=== PATIENT | male | born 1960 | race Caucasian/White ===

== ENCOUNTER 2018-02-21 07:45 | Emergency (ER) | payer OTHER, SELFPAY ==
[2018-02-21 07:53] VITALS: BP 165/112; PULSE 114; RESP 13; O2SAT 98
--- NOTE | 2018-02-21 07:58 | PC.NURSE ---
Pt describes his symptoms as he put on his glasses and he thought they were on crooked, he cleaned them but then when he was brushing his teeth the left side of his mouth was unable to purse his lips, and then driving in his left eye started watering so he tried blinking and his left eye wouldn't close. So he came here. Pt denies pain.
--- NOTE | 2018-02-21 08:01 | ED.NEUROSD ---
HPI - Neuro Symptoms/Deficit General Chief Complaint: Neuro Symptoms/Deficit Stated Complaint: LEFT SIDE OF FACE MUSCLES NOT WORKING Time Seen by Provider: 02/21/18 07:50 Source: patient Mode of arrival: ambulatory Limitations: no limitations History of Present Illness HPI Narrative: Is a 57-year-old male comes to the emergency department. Upon awakening he on and droop of the left side of his face. Patient states that he has droop of lower face but also noted that he can't close his left eye completely. Patient states that he was normal last night when he went to bed. He woke this morning he states that he thought his glasses run a little cocci brought them clean and then retested them and his vision was fine but then when he looked in the mirror noted that his face did not look normal. Patient states when he tried to brush his teeth or drink water spilled out the side of his mouth. He is not having any weakness or numbness on his upper lower extremities. He is not having any headaches, no other vision changes, no chest pain, no shortness of breath, no nausea vomiting or GI or urinary symptoms. Patient has a follow-up with his primary care physician next week for his annual physical. Does have a history of hypertension he takes lisinopril but does not take any other medications regularly. He has not had similar symptoms in the past. On Anticoagulants: No Related Data Home Medications Medication Instructions Recorded Confirmed lisinopril 10 mg PO QDAY #0 01/29/11 aspirin 81 mg PO QDAY #0 02/17/11 Previous Rx's Medication Instructions Recorded hydroxyzine pamoate [Vistaril] 25 - 50 mg PO Q4HP PRN #60 cap 12/18/16 ondansetron [Zofran ODT] 8 mg SUBLINGUAL Q6HP PRN #20 odt 12/18/16 oxycodone-acetaminophen [Percocet] 1 - 2 tab PO Q4HP PRN #60 tab 12/18/16 erythromycin 0.5 inch EYE-LEFT Q8H PRN #1 gram 02/21/18 prednisone See Label Instructions .ROUTE 02/21/18 .COMPLEX #45 tab valacyclovir 1,000 mg PO BID #14 tab 02/21/18 Review of Systems Review of Systems ROS Unobtainable: All systems reviewed & are unremarkable except as noted in HPI and below Constitutional Denies headache(s) Eyes Denies blurry vision and Denies change in vision ENT Ears, Nose, Mouth, and Throat: Denies facial pain, Denies headache(s), Denies hoarseness, Denies nasal congestion, Denies neck pain and Reports other (facial droop) Cardiovascular Denies chest pain, Denies irregular heart rhythm, Denies lightheadedness, Denies palpitations, Denies dyspnea, Denies dyspnea on exertion and Denies orthopnea Respiratory Denies cough, Denies dyspnea, Denies dyspnea on exertion and Denies wheezing Gastrointestinal Gastrointestinal: Denies abdominal pain, Denies change in bowel habits, Denies diarrhea, Denies nausea and Denies vomiting Genitourinary Denies hematuria, Denies flank pain, Denies urinary incontinence and Denies urinary urgency Musculoskeletal Denies abnormal gait, Denies neck pain, Denies numbness (of extremities) and Denies tingling Integumentary/Breasts Denies rash Neurologic Denies abnormal gait, Denies headache(s), Reports focal weakness (facial weakness.), Denies numbness (of extremities) and Denies tingling Endocrine Denies palpitations Allergic/Immunologic Denies wheezing [facility] Medical History Hypertension (Acute) Exam Narrative Exam Narrative: GEN: well nourished, well appearing male, alert and oriented x 3, patient appears to be in mild distress. HEENT: Atraumatic, pupils are equal round reactive to light, extraocular movements are intact, nares are clear, TMs are clear with no fluid, there is no conjunctival pallor. Throat is clear without any exudates, erythema, tonsillar enlargement or uvular deviation, patient has facial droop of the left face. He is unable to completely close his left with downward pressure the lid, he is on the right. Patient has droop of the mouth, cheek as well as upper eye. HEART: Regular rate and rhythm without murmur, clicks, rubs. LUNGS:Lungs clear to auscultation, no wheezes, rales, crackles, chest moves symmetrically ABD:bowel sounds normal, soft, non-tender, no guarding, rebound, rigidity, no masses noted, no hepatosplenomegaly MSCL: Non-tender, no muscle atrophy, muscles strength 5/5 upper and lower extremities, full range of motion, normal gait NEURO:CN 2-12 intact, sensation normal, reflexes 2/4 upper and lower extremities Initial Vital Signs Initial Vital Signs: Vital Signs Pulse Rate 114 H 02/21/18 07:53 Respiratory Rate 13 02/21/18 07:53 Blood Pressure 165/112 H 02/21/18 07:53 Pulse Oximetry 98 02/21/18 07:53 Course Vital Signs - 8 hr 02/21/18 07:53 02/21/18 08:26 Pulse Rate 114 H 112 H Respiratory Rate 13 20 Blood Pressure 165/112 H 137/107 H Pulse Oximetry 98 94 MDM - Neuro Symptoms/Deficit MDM Narrative Medical decision making narrative: 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 He has no other neurologic deficits making a stroke very unlikely. I discussed with patient will start him on prednisone as well as Valtrex. Patient given a script further with mycin ointment. We discussed that during the day he can use hydrating drop such as Visine as this will not affect his vision as much as erythromycin ointment. Patient was his annual physical next week. He is supposed to get his labs drawn which I encouraged him to go and get done and follow-up. Discharge Plan Departure Patient Disposition: Home Clinical Impression: Albarran's palsy Discharge Date/Time: 02/21/18 08:27 Interventions: ED Discharge Assessment Last Done: 02/21/18 08:26 Instructions: DI for Albarran's Palsy Activity Restrictions/Additional Instructions: Follow up with your primary care physician in the next week. Call to set up your appointment. Take steroids until gone. Take antivirals until gone. Use erythromycin ointment prior to bed. You may use paper tape to help keep your eye closed or an eye patch while your sleeping. Use Visine or similar hydrating eyedrops from [id number] 4-6 times daily or if your eyes feel dry. Return to the emergency department for sudden severe headaches, new vision changes, new weakness, numbness or loss of sensation in your extremities, inability to lift or move your arms or leg, difficulty with speech or other new or concerning symptoms. Prescriptions: New prednisone 10 mg tablet See Label Instructions .ROUTE .COMPLEX Qty: 45 RF: 0 valacyclovir 1 gram tablet 1,000 mg PO BID Qty: 14 RF: 0 erythromycin 5 mg/gram (0.5 %) ointment 0.5 inch EYE-LEFT Q8H PRN (Reason: dry eye(s)) Qty: 1 RF: 0 No Action lisinopril 10 MG tablet 10 mg PO QDAY Qty: 0 RF: 0 aspirin 81 MG tablet,chewable 81 mg PO QDAY Qty: 0 RF: 0 ondansetron [Zofran ODT] 8 MG tablet,disintegrating 8 mg Sublingual Q6HP PRNQty: 20 RF: 0 oxycodone-acetaminophen [Percocet] 5 MG/325 MG tablet 1 - 2 tab PO Q4HP PRNQty: 60 RF: 0 hydroxyzine pamoate [Vistaril] 25 MG capsule 25 - 50 mg PO Q4HP PRNQty: 60 RF: 0 Referrals: Micheal Zuñiga MD [Primary Care Provider] -
[2018-02-21 08:26] VITALS: BP 137/107; PULSE 112; RESP 20; O2SAT 94
== END 2018-02-21 08:27 | disposition home or self-care (01) ==
PROVIDERS: Emergency Provider Emergency Medicine; PCP Family Medicine
DX: G51.0 Bell's palsy (principal)
CPT/HCPCS: 99282; 99291

== ENCOUNTER → 2018-04-08 09:41 | Outpatient (CLI) | payer OTHER, SELFPAY ==
--- NOTE | 2018-04-08 | DI.MRI.S_ITS ---
PROCEDURE: MR KNEE LT WO CON INDICATIONS: Unspecified internal derangement of left knee TECHNIQUE: Noncontrast sagittal PD fast spin echo and T2 fast spin echo with fat saturation, sagittal 3-D FLASH with fat saturation; coronal T1 spin echo and PD fast spin echo with fat saturation, and axial PD fast spin echo with fat saturation through the knee. COMPARISON: None. FINDINGS: Image quality: Excellent. Menisci: Ill-defined tear the medial meniscus posterior horn and body, with partial extrusion. There is abnormal signal which extends to the free margin of the body as well as the posterior horn, and the superior articular surface. Prominent intrasubstance signal change within the body of the lateral meniscus, which may extend to the free margin raising the possibility of nondisplaced tear, however technically indeterminate. Cruciate ligaments: The anterior and posterior cruciate ligaments appear intact. Numerous multiloculated cyst just to the posterior aspect of the ACL and PCL within the posterior intercondylar notch image 17 series 7. Medial structures: The medial collateral ligament appears intact. The posterior oblique ligament, semimembranosus tendon insertions, oblique popliteal ligament, and meniscocapsular junction appear intact. Visualized portions of the pes anserinus tendons appear normal. No abnormal bursal fluid. Lateral structures: The lateral collateral ligament demonstrates proximal thickening and intrasubstance signal change. The long and short heads of the biceps femoris tendon appear intact. The popliteus tendon appears normal; the popliteofibular ligament appears intact. The posterosuperior and anteroinferior popliteomeniscal fascicles appear intact. The arcuate and fabellofibular ligaments appear intact, on either side of the lateral inferior geniculate artery. Iliotibial band appears normal. Anterior structures: The quadriceps and patellar tendons appear intact. Proximal and distal patellar tendinopathy is seen. There is prepatellar and superficial infrapatellar subcutaneous edema. Irregularity and poor visualization of the lateral patellofemoral ligament raising possibility of age-indeterminate sprain There is fluid within the deep infrapatellar bursa, raising the possibility of bursitis. Bones and cartilage: No focal marrow contusion or discrete low signal fracture line. Within the medial compartment, near full-thickness loss of the femoral and tibial articular cartilage with subchondral marrow signal changes. Within the lateral compartment, there is mild intrasubstance signal change of the tibial cartilage without definite focal defect. Within the patellofemoral compartment, diffuse surface fraying and fibrillation of the patellar cartilage. Femoral trochlear cartilage appears grossly intact. Subchondral signal changes also seen in the patella. Joint space: Moderate joint effusion. No Trinh's cyst identified. No evidence of intra-articular loose bodies IMPRESSION: Medial meniscal tear involving the body and posterior horn with partial extrusion. Myxoid degeneration of the lateral meniscus although cannot exclude nondisplaced horizontal tear as discussed above. Age-indeterminate lateral collateral ligament sprain. Sprain of the patellar attachment of the lateral patellofemoral ligament also age-indeterminate. Multiloculated periligamentous ganglion cyst within the posterior aspect of the intercondylar notch. Degenerative joint disease most pronounced within the medial compartment. Prepatellar and superficial infrapatellar subcutaneous edema. Diffuse patellar tendinopathy. Deep infrapatellar bursitis Dictated by: Beni Metcalf M.D. on 04/08/2018 at 12:44 Approved by: Beni Metcalf M.D. on 04/08/2018 at 12:54
== END ==
PROVIDERS: PCP Family Medicine; Visit Provider Orthopaedic Surgery
DX: S83.242A Other tear of medial meniscus, current injury, left knee, initial encounter (principal); S83.422A Sprain of lateral collateral ligament of left knee, initial encounter; M67.462 Ganglion, left knee; M17.12 Unilateral primary osteoarthritis, left knee; M70.52 Other bursitis of knee, left knee
CPT/HCPCS: 73721

== ENCOUNTER → 2018-04-18 14:24 | Outpatient (CLI) | payer OTHER, SELFPAY | PROVIDERS: PCP Family Medicine; Visit Provider Orthopaedic Surgery | DX: Z01.818 Encounter for other preprocedural examination (principal); M23.307 Other meniscus derangements, unspecified meniscus, left knee | CPT/HCPCS: 93005 ==

== ENCOUNTER → 2018-08-16 13:40 | Outpatient (CLI) | payer OTHER, SELFPAY ==
[2018-08-16 14:11] LABS: Add Manual Diff / Slide Review NO; Basophils Absolute Auto 100 /uL (0-100); Basophils Percent Auto 0.8 % (0-2); Eosinophils Absolute Auto 300 /uL (0-450); Eosinophils Percent Auto 3.7 % (2-4); Hematocrit 49.4 % (41-53); Lymphocytes Absolute Auto 1300 /uL (1100-4500); Lymphocytes Percent Auto 17.3 % (25-40); Mean Corpuscular HGB Conc 34.3 % (30-36); Mean Corpuscular Hemoglobin 36.8 PG (26-34); Mean Corpuscular Volume 107.2 fL (80-100); Monocytes Absolute Auto 600 /uL (0-900); Monocytes Percent Auto 8.3 % (3-14); Neutrophils Absolute Auto 5400 /uL (1500-7000); Neutrophils Percent Auto 69.9 % (50-75); Platelet Count 313 X10^3/uL (150-400); Red Blood Cell Count 4.61 X10^6/uL (4.5-5.9); Red Cell Distribution Width 15.3 % (11.6-14.8); White Blood Cell Count 7.7 X10^3/uL (4.5-11.0)
[2018-08-16 14:26] LABS: D Dimer < 200 ng/mL (<230)
[2018-08-19 11:24] LABS: PTT-LA Screen 35 seconds (< OR = 40); dDRVVT Screen 32 seconds (< OR = 45)
[2018-08-19 14:59] LABS: Protein C Activity 96 % normal (70-180)
== END ==
PROVIDERS: PCP Family Medicine
DX: I26.99 Other pulmonary embolism without acute cor pulmonale (principal)
CPT/HCPCS: 36415; 81240; 85025; 85300; 85303; 85306; 85379; 85597; 85613; 85730

== ENCOUNTER → 2018-08-23 15:00 | Oncology outpatient (ONC) | payer OTHER, SELFPAY ==
[2018-05-24 08:28] VITALS: BP 127/87; PULSE 100; RESP 20; TEMP 36.4; O2SAT 96
--- NOTE | 2018-05-24 09:22 | P.CONONC_ITS ---
History of Present Illness - Data of Consult Consult date: 05/24/18 Primary Care Provider: Micheal Zuñiga MD - Consult Narrative Narrative: Diagnosis: Pulmonary embolism Prior treatment: Catheter directed thrombolysis followed by anticoagulation. He is currently on Pradaxa. History of present illness: Jamal Guerrero is a 57 year old male who is referred for further evaluation of a recent episode of thromboembolism. The patient reports that he had been in his usual state of health until April of this year. He had arthroscopic knee surgery done on his left knee. He tolerated the procedure well and walked out of the treatment center. The following day, he had a lot of pain in his left leg and was unable to bear weight but did not have any shortness of breath or cough for chest pain. that night, he woke up at about 4:00 a.m. with acute onset of shortness of breath. He presented to the emergency room at [facility]. He had a CT pulmonary angiogram done that showed extensive bilateral pulmonary emboli. He was tachycardic. He had an ultrasound of his leg that did not show any thrombosis there. He did undergo catheter directed thrombolysis which he tolerated well. He then was started on enoxaparin and transitioned to Pradaxa. Today, he is tolerating his anticoagulation well. He has not had any bleeding complications. He denies any unusual bruising. A his breathing has normalized. He is not having any pain in the chest, dizziness or lightheadedness. He is not having any pain or swelling in the knee other than the expected postoperative discomfort. he has not had any prior episodes of thromboembolism. He does not smoke. There is no family history of thrombosis. His past medical history is notable for some pre diabetes and hypertension. He has had prior wrist surgery. He has had a prior neck fusion. He also has a history of irregular heartbeat in his head monitoring done with no obvious abnormalities found. His medications include lisinopril metformin and Pradaxa. 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 He does not smoke. He does have a regular alcohol use but denies excessively heavy intake. His family history is negative for thrombosis. His mother had thyroid cancer. There is no other family history of malignancy. CC: Cesar Jaquez MD Home Medications and Allergies Home Medications Medication Instructions Recorded Confirmed Type lisinopril 10 mg PO QDAY #0 01/29/11 05/24/18 History dabigatran etexilate [Pradaxa] 150 mg PO BID 05/24/18 05/24/18 History metformin 500 mg PO BID 05/24/18 05/24/18 History Medical History - Medical, Surgical, Family History Medical History: Medical History (Updated 05/24/18 @ 08:55 by Cesar Jaquez MD) Hypertension Review of Systems Constitutional: normal activity level, normal exercise tolerance Cardiovascular: palpitations, no chest pain, no syncope, no dyspnea on exertion Respiratory: no shortness of breath, no cough Musculoskeletal: no swelling, no redness, no limited ROM Integumentary: no bleeding or bruising Exam Vital signs: Vital Signs Temp Pulse Resp BP Pulse Ox 05/24/18 08:28 97.6 F 100 H 20 127/87 96 Intake and Output 05/23/18 05/24/18 05/24/18 23:59 07:59 15:59 Other: Weight 108.5 kg Patient Weight 05/24/18 23:59 Weight 108.5 kg - Constitutional positive no acute distress, positive average body habitus - Routine HEENT Exam Head: Present: normocephalic, atraumatic Eye: Present: EOMI, PERRL. Absent: conjunctival icterus, scleral injection ENT: Present: mucous membranes moist, oropharynx clear, dentition normal - Routine Neck Exam Present: supple. Absent: lymphadenopathy, thyromegaly - Routine Chest/Breast/Axilla Exam Axillae: Absent: lymphadenopathy - Routine Respiratory Exam Present: Clear to auscultation bilaterally. Absent: rales, wheezes - Routine Cardiovascular Exam Present: RRR, S1, S2. Absent: murmur - Routine Abdominal Exam Present: soft, normoactive bowel sounds. Absent: tenderness, organomegaly, mass - Routine Extremities Exam Absent: cyanosis, clubbing, edema Comments: The surgical incisions on his knee are well healed. There is no tenderness or edema. There are no palpable cords. - Routine Skin Exam Present: intact. Absent: petechiae, rash - Routine Neurological Exam Present: alert, oriented X3 - Routine Psychiatric Exam Present: normal affect, normal thought process Results - Imaging Additional studies: Procedures Excision of bone for graft, other bones (09/29/11) Excision of intervertebral disc (02/10/11) Fusion or refusion of 2-3 vertebrae (09/29/11) Other cervical fusion of the anterior column, anterior technique (02/10/11) Other repair and plastic operations on spinal cord structures (02/10/11) Refusion of other cervical spine, anterior column, anterior technique (09/29/11) Assessment and Plan (1) Pulmonary embolism Current visit: Yes Status: Acute A 57-year-old man with the extensive pulmonary embolism 2 days following arthroscopic knee surgery. He has no prior evidence are history of thromboembolism and his family history is negative. He is being anticoagulated in did undergo catheter directed thrombolysis with improvement in his symptoms. Typically, we would consider thrombosis following knee surgery to be provoked events and would consider 3 months of anticoagulation is adequate. However, arthroscopic knee surgeries a relatively reload risk procedure. In addition, his degree of thrombosis was extensive. In his case, I think it is reasonable to consider testing for hypercoagulable state. If he were to have such a condition, given the extent of his prior PE, it may be reasonable to consider extended anticoagulation. He will complete 3 months of therapy in July and then stop his Pradaxa. I think about a week later, we should check a hypercoagulable panel and have him follow-up about 2 weeks after that. If his testing is negative, then I think he could reasonably be treated with a short course of anticoagulation. If he were to harbor a high risk conditions such as a lupus anticoagulant or anticardiolipin antibodies then prolong therapy may be indicated. A D-dimer elevation at the completion of anticoagulation has been associated with a higher risk of recurrence. It has not been tested in any prospective trials but in this case may help us further tip the scales towards either prolonged therapy or stopping therapy. He will return to clinic here in late July or early August for follow-up.
--- NOTE | 2018-05-25 15:44 | ONC.SCHED ---
Called and left message for follow up appt. 05/24 and 05/25
[2018-08-23 15:46] VITALS: BP 136/86; PULSE 99; RESP 18; TEMP 37.1; O2SAT 97
--- NOTE | 2018-08-23 16:10 | P.PNONC_ITS ---
PN -Subjective Interval history: Diagnosis: Pulmonary embolism Prior treatment: Catheter directed thrombolysis followed by anticoagulation. He stopped his Pradaxa few weeks ago. Interval history: The patient is a 57-year-old man who returns today for follow-up. He has a history of pulmonary embolism that developed a few days after knee surgery. He did require catheter directed thrombolysis. He was anticoagulated for about 3 months. He tolerated the anticoagulation well. He did not have any bleeding complications and denies any epistaxis or gingival bleeding. No blood in the urine or the stool. He denies any ongoing shortness of breath cough for chest pain. He does have occasional dizziness when he stands. It just last for a 2nd or 2. He is not having any GI complaints. No pain or swelling in his legs. He is otherwise feeling quite well and has resumed all of his normal activities. - Patient Self-Reported Symptoms SR Cardiovascular issues: Dizzy/lightheaded SR Neuro issues: Lightheaded/dizzy Home Medications and Allergies Home Medications Medication Instructions Recorded Confirmed Type lisinopril 10 mg PO QDAY #0 01/29/11 05/24/18 History metformin 500 mg PO BID 05/24/18 05/24/18 History Exam Vital signs: Vital Signs Temp Pulse Resp BP Pulse Ox 08/23/18 15:46 98.8 F 99 H 18 136/86 97 Intake and Output 08/23/18 08/23/18 08/23/18 07:59 15:59 23:59 Other: Weight 108.8 kg Patient Weight 08/23/18 23:59 Weight 108.8 kg - Constitutional positive no acute distress, positive average body habitus Comments: He is not further examined. Results - Labs D-dimer was low. There was no evidence of a lupus anticoagulant. There was no prothrombin gene mutation. Protein C protein S and antithrombin were all normal. Factor 5 Leiden is still pending. - Imaging Additional studies: Procedures Excision of bone for graft, other bones (09/29/11) Excision of intervertebral disc (02/10/11) Fusion or refusion of 2-3 vertebrae (09/29/11) Other cervical fusion of the anterior column, anterior technique (02/10/11) Other repair and plastic operations on spinal cord structures (02/10/11) Refusion of other cervical spine, anterior column, anterior technique (09/29/11) Assessment and Plan (1) Pulmonary embolism Current visit: Yes Status: Acute A 57-year-old man with the extensive pulmonary embolism 2 days following arthroscopic knee surgery. He has no prior evidence are history of thromboembolism and his family history is negative. He does not have any high risk genetic component to make him hypercoagulable and his D-dimer is low. This would predict that his risk of recurrent thromboembolism is relatively low fo llowing this provoked event. I think he can safely stop his anticoagulation. I have not scheduled a follow-up appointment for him but would be happy to see him again in the future should new questions arise. Should he have a 2nd episode of thrombosis, he would require indefinite anticoagulation.
== END ==
PROVIDERS: PCP Family Medicine
DX: I26.99 Other pulmonary embolism without acute cor pulmonale (principal); Z79.01 Long term (current) use of anticoagulants
CPT/HCPCS: 99205; 99213; 99215

== ENCOUNTER → 2019-04-06 09:08 | Outpatient (CLI) | payer OTHER, SELFPAY ==
--- NOTE | 2019-04-06 | DI.RAD.S_ITS ---
PROCEDURE: XR ELBOW RT MIN 3V INDICATIONS: BILATERAL FROZEN ELBOW JOINT TECHNIQUE: 3 views of the elbow were acquired. COMPARISON: None. FINDINGS: Bones: No fractures or dislocations. No suspicious bony lesions. Cortical hypertrophy and irregularity at the medial epicondyle, and lateral epicondyle to a lesser extent. Scattered degenerative subchondral sclerosis and spurring. There are bulky osteophytes at the ulnotrochlear articulation. Soft tissues: No elbow joint effusion. No suspicious soft tissue calcifications. IMPRESSION: Right elbow joint degeneration, with bulky osteophyte formation. Cortical irregularity at the medial condyle suggestive of chronic medial epicondylitis syndrome. Similar changes at the lateral epicondyle although to a lesser extent, nonetheless suggestive of chronic lateral epicondylitis syndrome. Dictated by: Beni Metcalf M.D. on 04/06/2019 at 10:29 Approved by: Beni Metcalf M.D. on 04/06/2019 at 10:31
--- NOTE | 2019-04-06 | DI.RAD.S_ITS ---
PROCEDURE: XR ELBOW LT MIN 3V INDICATIONS: BILATERAL FROZEN ELBOW JOINT TECHNIQUE: 3 views of the elbow were acquired. COMPARISON: None. FINDINGS: Bones: No fractures or dislocations. No suspicious bony lesions. Severe joint degeneration with bulky osteophyte formation. Possible foreign body projecting on the skin surface of the antecubital fossa versus debris external to the patient. Recommend clinical correlation. Olecranon spurring noted. There is a chronic ossicle projecting at the medial aspect of the ulnotrochlear joint measuring 3 mm Possible chronic fracture deformity of the radial head, although evaluation limited by advanced arthritic changes. Soft tissues: No elbow joint effusion. No suspicious soft tissue calcifications. IMPRESSION: Severe joint degeneration with bulky osteophyte formation. Chronic olecranon spur suggestive of distal triceps tendinopathy Possible foreign body seen near the skin surface of the antecubital fossa although this could be external to the patient. Loose body versus heterotopic ossification projecting adjacent to the ulnotrochlear joint Dictated by: Beni Metcalf M.D. on 04/06/2019 at 11:21 Approved by: Beni Metcalf M.D. on 04/06/2019 at 11:47
== END ==
PROVIDERS: PCP Student in an Organized Health Care Education/Training Program; Referring Provider Student in an Organized Health Care Education/Training Program; Visit Provider Student in an Organized Health Care Education/Training Program
DX: M25.821 Other specified joint disorders, right elbow (principal); M25.822 Other specified joint disorders, left elbow; M19.022 Primary osteoarthritis, left elbow; M19.021 Primary osteoarthritis, right elbow
CPT/HCPCS: 73080

== ENCOUNTER → 2019-07-24 10:44 | Outpatient (CLI) | payer OTHER, SELFPAY ==
--- NOTE | 2019-07-24 | DI.RAD.S_ITS ---
PROCEDURE: XR CHEST 2V INDICATIONS: DIZZINESS TECHNIQUE: 2 views of the chest were acquired. COMPARISON: None. FINDINGS: Surgical changes and devices: Partially visualized cervical spine fixation hardware Lungs and pleura:. Low lung volumes with scattered subsegmental atelectasis/scarring. No pleural effusions or pneumothorax. Mediastinum: Mediastinal contours are normal. Heart size is normal. Bones and chest wall: No suspicious bony abnormalities. Soft tissues appear unremarkable. IMPRESSION: Low lung volumes with scattered subsegmental atelectasis/scarring. Dictated by: Beni Metcalf M.D. on 07/24/2019 at 14:40 Approved by: Beni Metcalf M.D. on 07/24/2019 at 14:41
== END ==
PROVIDERS: PCP Student in an Organized Health Care Education/Training Program; Referring Provider Student in an Organized Health Care Education/Training Program; Visit Provider Student in an Organized Health Care Education/Training Program
DX: R42 Dizziness and giddiness (principal)
CPT/HCPCS: 71046

== ENCOUNTER → 2019-08-06 08:19 | Outpatient (CLI) | payer OTHER, SELFPAY ==
[2019-08-07 08:48] LABS: COVID19 Sendout Not Detected (Not Detect)
== END ==
PROVIDERS: PCP Student in an Organized Health Care Education/Training Program; Visit Provider Physician Assistant
DX: Z01.812 Encounter for preprocedural laboratory examination (principal)
CPT/HCPCS: 87635

== ENCOUNTER → 2019-08-10 06:48 | Outpatient (CLI) | payer OTHER, SELFPAY ==
--- NOTE | 2019-08-10 06:57 | DI.ECHO.S_ITS ---
Echocardiogram Report + + :Name: JASEN HERMOSILLO Study Date: 08/10/2019 Height: 77 in : :[facility] Weight: 235 lb : : Gender: Male BSA: 2.4 m2 : :: 1960 Age: 58 yrs BP: 139/72 mmHg: :Reason For Study: Abnormal Ekg : :Ordering Physician: LOUISE, : :JOCELYNE Performed By: Mady Guerra : :Referring: JOCELYNE GIL : + + Interpretation Summary 1) Normal left ventricular size with mildly reduced systolic function (EF 45- 50%). 2) Septal motion is consistent with conduction abnormality. 3) The right ventricle is normal in size and function. 4) There is mild aortic regurgitation. 5) The aortic root is mildly dilated at 4.2cm. The ascending aorta is mildly enlarged at 3.9cm. 6) Compared to the Echo done 04/30/2018, LVEF has decreased from normal to mildly reduced on this study. Procedure: A two-dimensional transthoracic echocardiogram with color flow and Doppler was performed. The study quality was technically adequate. Comparison is made with the echocardiogram of 04/30/2018. The patient was in normal sinus rhythm during the exam. The heart rate ranged between 68-75 bpm during the study. Left Ventricle: The left ventricle is normal in size and wall thickness. Left ventricular global longitudinal strain average is -15.6%. The ejection fraction is estimated to be 45-50%. Septal motion is consistent with conduction abnormality. Diastolic parameters suggest a relaxation abnormality of the left ventricle, consistent with probable normal filling pressures. Right Ventricle: The right ventricle is normal in size and function. Atria: The left atrial size is normal. The right atrium is borderline dilated. There is no Doppler evidence for an interatrial shunt. Mitral Valve: The mitral valve is normal in structure but abnormal in function. There is trace mitral regurgitation. Aortic Valve: The aortic valve is trileaflet. The aortic valve opens well. There is no aortic valve stenosis. There is mild aortic regurgitation. Tricuspid Valve: The tricuspid valve is normal in structure and function. There is trace tricuspid regurgitation. Pulmonary artery pressures cannot be estimated because of the lack of a measurable TR jet velocity but the IVC suggests a CVP of around 3 mmHg. Pulmonic Valve: The pulmonic valve is normal in structure and function. There is no pulmonic valvular regurgitation. Great Vessels: The aortic root is mildly dilated. The ascending aorta is mildly enlarged. The IVC is of normal diameter and collapses greater than 50% with a sniff. This suggests a low right atrial pressure of 3 mm Hg. Pericardium/ Pleura There is no pericardial effusion. There is no pleural effusion. MMode/2D Measurements & Calculations LVIDd: 5.5 cm LVOT diam: 2.5 cm LVIDs: 4.1 cm Ao root diam: 4.2 cm FS: 24.6 % asc Aorta Diam: 3.9 cm EPSS: 1.0 cm Ao Arch Diam (Prox Trans): 2.8 cm IVSd: 0.92 cm LVPWd: 0.93 cm LV landon. diameter/BSA (cm/m^2): 2.3 LV sys. diameter/BSA (cm/m^2): 1.7 LA A2 area: 28.8 cm2 RA long axis: 5.7 cm LA A4 area: 20.3 cm2 RA area: 21.4 cm2 LA length (vol): 6.6 cm RA vol: 68.0 ml LA vol: 75.8 ml RA : 28.4 ml/m2 LA vol index: 31.6 ml/m2 IVC diam: 1.6 cm RVD1 (basal): 3.8 cm TAPSE: 2.0 cm Doppler Measurements & Calculations Ao V2 max: 131.6 cm/sec LVOT Max Jordan: 84.0 cm/sec Ao V2 mean: 92.5 cm/sec LV V1 max P.8 mmHg Ao max P.9 mmHg LV V1 VTI: 16.1 cm Ao mean P.8 mmHg FLO(I,D): 3.1 cm2 Ao V2 VTI: 25.4 cm FLO(V,D): 3.1 cm2 sev ratio: 0.63 FLO indexed to BSA (cm^2/m^2): 1.3 AI P1/2t: 674.0 msec AI dec slope: 209.4 cm/sec2 MV E max jordan: 36.8 cm/sec PA V2 max: 57.7 cm/sec MV A max jordan: 75.9 cm/sec PA V2 mean: 40.2 cm/sec MV E/A: 0.49 PA mean P.73 mmHg Med Peak E' Jordan: 6.5 cm/sec PA pr(Accel): 27.6 mmHg E/E' med: 5.6 Lat Peak E' Jordan: 8.4 cm/sec E/E' lat: 4.4 E/e' average: 5.0 MV dec time: 0.27 sec SV(LVOT): 78.1 ml Reading Physician:08:48 AM
== END ==
PROVIDERS: PCP Student in an Organized Health Care Education/Training Program; Referring Provider Student in an Organized Health Care Education/Training Program; Visit Provider Student in an Organized Health Care Education/Training Program
DX: I35.1 Nonrheumatic aortic (valve) insufficiency (principal); R94.31 Abnormal electrocardiogram [ECG] [EKG]; R42 Dizziness and giddiness; I77.89 Other specified disorders of arteries and arterioles
CPT/HCPCS: 93306

== ENCOUNTER → 2020-05-28 07:34 | Outpatient (CLI) | payer OTHER, SELFPAY ==
--- NOTE | 2020-05-28 | DI.RAD.S_ITS ---
PROCEDURE: FL BARIUM SWALLOW W AIR COMPARISON: None. INDICATIONS: Dysphagia, unspecified FINDINGS: The patient complains of glottic and immediate subglottic symptomatology. At a point during the examination aspiration into the trachea was observed. Single-contrast study shows no morphologic abnormality but there is postsurgical change at the mid and low cervical spine, and the patient did report significant symptomatology postoperative after this procedure. Reflux was not observed, a distal esophageal mass was not identified. Air-contrast showed no mucosal lesions or evidence of esophageal inflammation. Note was made of a medial directed duodenal diverticulum, as an incidental finding, measuring approximately 2.5 cm in dimension. IMPRESSION: There is symptomatology reported by the patient that may warrant dedicated speech therapy swallowing evaluation targeted to the upper esophagus and glottic region. The patient reports symptomatology is directly referable to this area rather than to the lower esophagus. At 1 point during the examination bernadine reflux into the tracheal airway was observed. Incidental finding of a medial directed duodenal diverticulum projecting from the 2nd portion of the duodenum, approximately 3 cm below the duodenal bulb. Duodenal diverticuli generally are asymptomatic unless inflamed or containing significant debris. Neither was seen in this case. Dictated by: Srinivas Monroe M.D. on 05/28/2020 at 14:03 Approved by: Srinivas Monroe M.D. on 05/28/2020 at 14:09
== END ==
PROVIDERS: PCP Student in an Organized Health Care Education/Training Program; Referring Provider Student in an Organized Health Care Education/Training Program; Visit Provider Student in an Organized Health Care Education/Training Program
DX: R13.10 Dysphagia, unspecified (principal); K57.10 Diverticulosis of small intestine without perforation or abscess without bleeding
CPT/HCPCS: 74221

== ENCOUNTER → 2020-07-17 07:58 | Outpatient (CLI) | payer OTHER, SELFPAY ==
[2020-07-17 12:50] LABS: COVID19 -Nasal RAPID Negative (Negative)
== END ==
PROVIDERS: PCP Student in an Organized Health Care Education/Training Program; Visit Provider Physician Assistant
DX: Z01.812 Encounter for preprocedural laboratory examination (principal); Z20.822 Contact with and (suspected) exposure to COVID-19
CPT/HCPCS: 87635

== ENCOUNTER 2020-07-19 14:17 | Day surgery (SDC) | payer OTHER, SELFPAY ==
--- NOTE | 2020-07-19 12:25 | PM.PREOP ---
Pre-operative Note COVID-19 COVID-19 status: Negative Result date/Date tested (Pos, Neg/Pending): 07/17/20 Interval Note History & Physical reviewed/Exam performed by Physician: Yes Changes to H&P: No ASA Class (for procedural sedation): II
--- NOTE | 2020-07-19 12:26 | PM.OP.ENDO ---
Operative Date/Time/Diagnoses Date of procedure: 07/19/20 Procedure Notes SCOAP/Timeout: 3:23 p.m. Procedure in detail: ENDOSCOPIST: Veronica Archer MD Sedation RN: Charlene Schumacher RN Sedation start time: 3:29 p.m. Sedation end time: 3:46 p.m. PROCEDURE: Colonoscopy INDICATIONS: 1. Screening for colon cancer MEDICATION: Levsin 0.125 mg sublingual, incremental doses of Versed and fentanyl until appropriate level sedation achieved. ASA CLASS: 2 CECAL WITHDRAWAL TIME: 7 minutes COMPLICATIONS: None. EXTENT OF PROCEDURE: Cecum. QUALITY OF PREP: Good with portions of liquid stool. PROCEDURE: Prior to insertion of the colonoscope, a digital rectal examination was accomplished with circumferential palpation of the distal rectal mucosa without significant findings being noted. The high-definition colonoscope was passed into the rectum in the usual fashion and advanced over to the cecum without difficulty. The ileocecal valve, appendiceal stoma, and medial wall all could be inspected and no abnormalities were seen. ASCENDING COLON: As the colonoscope was withdrawn, care was taken to expose and inspect the haustral folds and pancolonic diverticulosis was seen. HEPATIC FLEXURE: Minor diverticulosis, otherwise normal, no polyps, or other abnormalities. TRANSVERSE COLON: Minor diverticulosis, otherwise normal, no polyps, or other abnormalities. DESCENDING COLON: Moderate diverticulosis, otherwise normal, no polyps, or other abnormalities. SIGMOID COLON: Moderate diverticulosis, otherwise normal, no polyps, or other abnormalities. RECTUM: Normal. J maneuver was produced. There was no significant perianal disease. The J maneuver was broken. The remainder of the rectum was inspected and there was no external hemorrhoid disease. The scope was withdrawn. IMPRESSION: 1. Normal colonoscopy 2. Pancolonic diverticulosis PLAN: 1. Repeat colonoscopy in 10 years. The possibility of a missed lesion including a malignancy has been discussed with the patient previously. Potential alarm symptoms have been discussed and should be reported immediately.
[2020-07-19 14:49] VITALS: BMI 29.6
[2020-07-19] MEDS: HYOSCYAMINE 0.125 MG TABLET PO (15:08)
[2020-07-19] MEDS: LACTATED RINGERS 1,000 ML 200 ML IV (15:08)
[2020-07-19 15:11] VITALS: BP 154/106; PULSE 102; RESP 16; TEMP 36.3; O2SAT 97
[2020-07-19 15:49] VITALS: BP 139/97; PULSE 91; RESP 19; TEMP 36.7; O2SAT 96
[2020-07-19] MEDS: MIDAZOLAM 5 MG/5 ML VIAL IV (15:49)
[2020-07-19] MEDS: fentaNYL 250 MCG/5 ML INJ IV (15:50)
[2020-07-19 15:54] VITALS: BP 136/104; PULSE 99; RESP 14; O2SAT 95
[2020-07-19 15:59] VITALS: BP 139/94; PULSE 87; RESP 16; TEMP 36.7; O2SAT 95
[2020-07-19 16:06] VITALS: BP 132/94; PULSE 88; RESP 18; TEMP 36.9; O2SAT 96
--- NOTE | 2020-07-19 16:16 | SUR.PHASEII ---
d/c instructions discussed, pt voiced an understanding. Pt ready to go ride called, belly soft and no nausea. Pt left in stable condition.
== END 2020-07-19 16:18 | disposition home or self-care (01) ==
PROVIDERS: PCP Student in an Organized Health Care Education/Training Program; Referring Provider Student in an Organized Health Care Education/Training Program; Visit Provider Student in an Organized Health Care Education/Training Program
PROC: 0DJD8ZZ Inspection of Lower Intestinal Tract, Via Natural or Artificial Opening Endoscopic (ICD-10-PCS; CPT 45378; principal; 2020-07-19 15:15)
DX: Z12.11 Encounter for screening for malignant neoplasm of colon (principal); K57.30 Diverticulosis of large intestine without perforation or abscess without bleeding
CPT/HCPCS: 45378; J2250; J3010

== ENCOUNTER 2023-03-16 14:10 | Observation (INO) | payer OTHER, SELFPAY ==
[2023-03-16] VITALS (27 sets, daily range): BP systolic 129–173; BP diastolic 81–99; PULSE 55–75; RESP 10–18; TEMP 36.5–37.1; O2SAT 94–100; BMI 29.6
--- NOTE | 2023-03-16 14:17 | DI.RAD.S_ITS ---
PROCEDURE: XR CHEST 1V INDICATIONS: chest pain TECHNIQUE: One view of the chest was acquired. COMPARISON: [facility], CR, XR CHEST 2V, 07/24/2019, 10:50. FINDINGS: Surgical changes and devices: Cervical fusion hardware. Lungs and pleura: Lungs are clear. No pleural effusions or pneumothorax. Mediastinum: Mediastinal contours appear normal. Heart size is normal. Bones and chest wall: No suspicious bony lesions. Overlying soft tissues appear unremarkable. IMPRESSION: No acute cardiopulmonary abnormality is seen. Dictated by: Levi Jimenez M.D. on 03/16/2023 at 14:41 Approved by: Levi Jimenez M.D. on 03/16/2023 at 14:41
[2023-03-16] MEDS: ASPIRIN 81 MG CHEW TAB 324 MG PO (14:31)
[2023-03-16 14:43] LABS: Add Manual Diff / Slide Review NO; Basophils Absolute Auto 100 /uL (0-100); Basophils Percent Auto 0.9 % (0-2); Eosinophils Absolute Auto 300 /uL (0-450); Eosinophils Percent Auto 3.3 % (2-4); Hematocrit 48.4 % (41-53); Lymphocytes Absolute Auto 1900 /uL (1100-4500); Lymphocytes Percent Auto 22.9 % (25-40); Mean Corpuscular HGB Conc 35.1 % (30-36); Mean Corpuscular Hemoglobin 39.5 PG (26-34); Mean Corpuscular Volume 112.7 fL (80-100); Monocytes Absolute Auto 800 /uL (0-900); Monocytes Percent Auto 9.7 % (3-14); Neutrophils Absolute Auto 5200 /uL (1500-7000); Neutrophils Percent Auto 63.2 % (50-75); Platelet Count 301 X10^3/uL (150-400); Red Blood Cell Count 4.29 X10^6/uL (4.5-5.9); Red Cell Distribution Width 14.1 % (11.6-14.8); White Blood Cell Count 8.2 X10^3/uL (4.5-11.0)
[2023-03-16 14:49] LABS: INR 1.1 (0.9-1.3); Prothrombin Time 12.3 SECONDS (9.4-12.5)
[2023-03-16 14:51] LABS: Macrocytosis 2+; PTT Partial Thromboplastin Tim 34 SECONDS (25.1-36.5)
[2023-03-16 14:59] LABS: Alanine Aminotransferase 39 IU/L (<50); Albumin 4.2 g/dL (3.5-5.0); Albumin Globulin Ratio 1.4 (1.0-2.8); Alkaline Phosphatase 56 U/L (38-126); Aspartate Aminotransferase 44 IU/L (17-59); BUN Creatinine Ratio 17.6 (6-22); Bilirubin Total 1.3 mg/dL (0.2-1.3); Blood Urea Nitrogen 19 mg/dL (9-20); Calcium 9.2 mg/dL (8.4-10.2); Carbon Dioxide 29 mmol/L (22-32); Chloride 100 mmol/L (98-107); Creatine Kinase 77 U/L (55-170); Estimated Glomerular Filt Rate > 60 mL/min (>60); Globulin 2.9 g/dL (1.7-4.1); Glucose 117 mg/dL (80-110); HEMOLYSIS 22 (0-50); Lipase 122 U/L (23-300); Magnesium 1.8 mg/dL (1.6-2.3); Potassium 4.2 mmol/L (3.4-5.1); Sodium 135 mmol/L (137-145); Total Protein 7.1 g/dL (6.3-8.2)
[2023-03-16 15:10] LABS: Troponin I < 0.012 ng/mL (0.01-0.034)
[2023-03-16 17:12] LABS: Troponin I < 0.012 ng/mL (0.01-0.034)
--- NOTE | 2023-03-16 19:19 | ED_ITS ---
HPI - Chest Pain General Chief Complaint: Chest Pain Stated Complaint: chest discomfort Time Seen by Provider: 03/16/23 15:20 Source: patient Mode of arrival: Ambulatory Limitations: no limitations History of Present Illness HPI narrative: Patient 62-year-old male history of hypertension hyperlipidemia previous PE presenting today with chest discomfort. He says yesterday he noticed some left- sided chest discomfort as a dull ache stayed on the left side today however it moved over to the right side. It is nonradiating he denies any significant shortness of breath no nausea or diaphoresis. He has had no known previous coronary events. He did previously have a PE a number of years ago after meniscus surgery. Currently on anticoagulation. Related Data Home Medications Medication Instructions Recorded Confirmed metformin 500 mg tablet 500 mg PO DAILY 05/24/18 03/16/23 aspirin 81 mg tablet 81 mg PO DAILY 07/19/20 03/16/23 metoprolol succinate 25 mg 50 mg PO BID 07/19/20 03/16/23 tablet,extended release 24 hr vitamin B12 1 mg-folic acid 0.8 mg 1 tab PO DAILY 07/19/20 03/16/23 tablet valsartan 160 mg tablet 160 mg PO DAILY 03/16/23 03/16/23 Allergies Allergy/AdvReac Type Severity Reaction Status Date / Time No Known Drug Allergies Allergy Verified 07/19/20 14:58 Patient History Medical History (Updated 03/16/23 @ 23:51 by Janet Cardenas DO) Pre-diabetes Hypertension Social History household members: significant other Smoking Status: Never smoker Smoking Status: Never smoker alcohol intake frequency: 3 or more drinks per day Substance Use Type: does not use Exam Initial Vital Signs Initial Vital Signs: Vital Signs Temperature 98.7 F 03/16/23 14:13 Pulse Rate 75 03/16/23 14:13 Respiratory Rate 18 03/16/23 14:13 Blood Pressure 173/99 H 03/16/23 14:13 Pulse Oximetry 98 03/16/23 14:13 Oxygen Delivery Method Room Air 03/16/23 14:13 GENERAL: Alert well-appearing 62-year-old male HEENT: Head atraumatic,EOMI, pupils reactive, face symmetric, moist mucous membranes CARDIOVASCULAR: Regular rate and rhythm without murmurs, rubs or gallops. RESPIRATORY: Breath sounds equal bilaterally, no wheezes rales or rhonchi. ABDOMEN: Soft, nontender. Normoactive bowel sounds all 4 quadrants. No guarding or rebound. EXTREMITIES: Normal range of motion, no clubbing or edema. Neurovascularly intact NEUROLOGICAL: Alert and oriented x4.Normal gait and speech. SKIN: Warm, dry, no laceration, no petechiae, no rashes or lesions. Course Orders Ordered: ED Orders 03/16/23 16:21 Trop I [Troponin I] Stat 03/16/23 16:30 EKG-12 Lead Routine 03/16/23 19:34 D Dimer Stat EKG-12 Lead Stat 03/16/23 20:17 CT angio chest PE protocol Stat Acetaminophen (Acetaminophen 325 Mg Tablet) 650 mg PO Q6H PRN PRN Reason: pain Calcium Carbonate (Calcium Carbonate 500 Mg Tab) 500 mg PO Q6H PRN PRN Reason: Dyspepsia Enoxaparin Sodium (Enoxaparin 40 Mg/0.4 Ml Syringe) 40 mg SUBCUT DAILY [facility] Melatonin (Melatonin 3 Mg Tablet) 6 mg PO BEDTIME PRN PRN Reason: sleep Morphine Sulfate (Morphine 2 Mg/Ml Inj) 2 mg IV Q6HR PRN PRN Reason: Chest Pain Nitroglycerin (Nitroglycerin 0.4 Mg Sl Tab) 0.4 mg SL [id number] PRN PRN Reason: Chest Pain Sodium Chloride (Sodium Chloride 0.9% Flush) 10 ml IV BID [facility] Discontinued Medications Aspirin (Aspirin 81 Mg Chew Tab) 324 mg PO NOW ONE Stop: 03/16/23 14:18 Last Admin: 03/16/23 14:31 Dose: 324 mg Documented By: BRANT Vital Signs Vital signs: Vital Signs - 8 hr 03/16/23 16:15 03/16/23 16:16 03/16/23 16:16 Pulse Rate 57 L 55 L Respiratory Rate 14 14 Blood Pressure 152/88 H Pulse Oximetry 100 Oxygen Delivery Method 03/16/23 16:30 03/16/23 16:30 03/16/23 17:00 Pulse Rate 59 L Respiratory Rate 18 Blood Pressure 144/89 H 133/85 Pulse Oximetry 98 Oxygen Delivery Method 03/16/23 17:00 03/16/23 17:30 03/16/23 17:30 Pulse Rate 61 67 Respiratory Rate 13 17 Blood Pressure 129/81 Pulse Oximetry 97 97 Oxygen Delivery Method 03/16/23 17:45 03/16/23 18:00 03/16/23 18:00 Pulse Rate 61 63 Respiratory Rate 14 15 Blood Pressure 135/91 H Pulse Oximetry 97 98 Oxygen Delivery Method 03/16/23 18:15 03/16/23 18:30 03/16/23 18:30 Pulse Rate 62 59 L Respiratory Rate 12 12 Blood Pressure 135/90 Pulse Oximetry 97 98 Oxygen Delivery Method 03/16/23 18:45 03/16/23 19:00 03/16/23 19:00 Pulse Rate 60 61 Respiratory Rate 14 13 Blood Pressure 132/89 Pulse Oximetry 98 98 Oxygen Delivery Method Room Air 03/16/23 19:15 03/16/23 19:30 03/16/23 19:31 Pulse Rate 59 L 62 Respiratory Rate 14 18 Blood Pressure 160/97 H Pulse Oximetry 97 98 Oxygen Delivery Method Room Air 03/16/23 19:31 03/16/23 19:45 03/16/23 20:00 Pulse Rate 61 61 Respiratory Rate 14 16 Blood Pressure 154/93 H Pulse Oximetry 98 98 Oxygen Delivery Method Room Air Room Air 03/16/23 20:00 03/16/23 20:15 03/16/23 20:30 Pulse Rate 59 L 60 Respiratory Rate 12 10 L Blood Pressure 164/99 H Pulse Oximetry 97 96 Oxygen Delivery Method Room Air 03/16/23 20:45 03/16/23 21:00 03/16/23 21:15 Pulse Rate 63 60 71 Respiratory Rate 14 16 12 Blood Pressure Pulse Oximetry 98 96 95 Oxygen Delivery Method Room Air 03/16/23 21:30 Pulse Rate 67 Respiratory Rate 12 Blood Pressure Pulse Oximetry 94 Oxygen Delivery Method MDM - Chest Pain Lab Data 03/16/23 14:20 03/16/23 14:20 Labs: Lab Results 03/16/23 03/16/23 03/16/23 Range/Units 14:20 16:21 19:34 WBC 8.2 (4.5-11.0) X10^3/uL RBC 4.29 L (4.5-5.9) X10^6/uL Hgb 17.0 (13.5-17.5) g/dL Hct 48.4 (41-53) % MCV 112.7 H (80-100) fL MCH 39.5 H (26-34) PG MCHC 35.1 (30-36) % RDW 14.1 (11.6-14.8) % Plt Count 301 (150-400) X10^3/uL Neut % (Auto) 63.2 (50-75) % Lymph % (Auto) 22.9 L (25-40) % [place] % (Auto) 9.7 (3-14) % Eos % (Auto) 3.3 (2-4) % Baso % (Auto) 0.9 (0-2) % Neut # (Auto) 5200 (6010-3277) /uL Lymph # (Auto) 1900 (1657-6302) /uL [place] # (Auto) 800 (0-900) /uL Eos # (Auto) 300 (0-450) /uL Baso # (Auto) 100 (0-100) /uL RBC Morphology Not Reportable Macrocytosis 2+ H PT 12.3 (9.4-12.5) SECONDS INR 1.1 (0.9-1.3) APTT 34 (25.1-36.5) SECONDS D-Dimer 1099 H (<500) ng/ml Sodium 135 L (137-145) mmol/L Potassium 4.2 (3.4-5.1) mmol/L Chloride 100 (98-107) mmol/L Carbon Dioxide 29 (22-32) mmol/L BUN 19 (9-20) mg/dL Creatinine 1.08 (0.66-1.25) mg/dL Estimated GFR > 60 (>60) mL/min BUN/Creatinine Ratio 17.6 (6-22) Glucose 117 H (80-110) mg/dL Calcium 9.2 (8.4-10.2) mg/dL Magnesium 1.8 (1.6-2.3) mg/dL Total Bilirubin 1.3 (0.2-1.3) mg/dL AST 44 (17-59) IU/L ALT 39 (<50) IU/L Alkaline Phosphatase 56 (38-126) U/L Total Creatine Kinase 77 (55-170) U/L Troponin I < 0.012 < 0.012 (0.01-0.034) ng/mL Total Protein 7.1 (6.3-8.2) g/dL Albumin 4.2 (3.5-5.0) g/dL Globulin 2.9 (1.7-4.1) g/dL Albumin/Globulin Ratio 1.4 (1.0-2.8) Lipase 122 (23-300) U/L Imaging Data Chest x-ray: Radiologist's Impression: PROCEDURE: XR CHEST 1V INDICATIONS: chest pain TECHNIQUE: One view of the chest was acquired. COMPARISON: [facility], CR, XR CHEST 2V, 07/24/2019, 10:50. FINDINGS: Surgical changes and devices: Cervical fusion hardware. Lungs and pleura: Lungs are clear. No pleural effusions or pneumothorax. Mediastinum: Mediastinal contours appear normal. Heart size is normal. Bones and chest wall: No suspicious bony lesions. Overlying soft tissues appear unremarkable. IMPRESSION: No acute cardiopulmonary abnormality is seen. Dictated by: Levi Jimenez M.D. on 03/16/2023 at 14:41 CT scan - chest: Radiologist's Impression: PROCEDURE: CT ANGIO CHEST PE PROTOCOL INDICATIONS: high dimer, prior dimer TECHNIQUE: After the administration of intravenous contrast, 2 mm thick sections acquired from the pulmonary apices to the posterior costophrenic angles. 3-dimensional maximum intensity projection (MIP) coronal and sagittal reformats were then acquired through the thorax. For radiation dose reduction, the following was used: automated exposure control, adjustment of mA and/or kV according to patient size. COMPARISON: [facility], CT, CT ANGIO CHEST PE, 05/04/2018, 21:03. FINDINGS: Image quality: Diagnostic. Pulmonary arteries: Pulmonary arteries are normal in size, and demonstrate no intraluminal filling defects to suggest central pulmonary embolism. Lower Neck: No visible adenopathy. Thyroid: Normal CT appearance. Axillae: No enlarged lymph nodes. Chest Wall: Unremarkable. Bones: No suspicious bone lesions. Partially imaged anterior and posterior cervical spine hardware. Prominent endplate spurs. Lungs and Pleura: Central airways are patent. Peripheral airways demonstrate mild bronchial wall thickening in the perihilar regions bilaterally. Mild bibasilar ground-glass opacities. No dense consolidations, suspicious nodules, or pleural effusions. Heart: Heart size at the upper limits of normal. No pericardial effusion. Thoracic Vessels: No aortic aneurysm. Mediastinum and Promise: Mild mediastinal lipomatosis with shotty, nonenlarged lymph nodes present diffusely. Esophagus: No wall thickening. No hiatal hernia. Upper Abdomen: Mild hepatic steatosis. Visible upper abdominal organs are otherwise within normal limits. IMPRESSION: No acute pulmonary embolus. Bronchial wall thickening and minor bibasilar ground-glass opacities suggesting bronchitis. Dictated by: Sherrell Urbina M.D. on 03/16/2023 at 21:00 Approved by: Sherrell Urbina M.D. on 03/16/2023 at 21:11 ECG Data Interpretation: EKG 1. Sinus rhythm rate 64 MI interval 138 QRS 96 QTC 425 T-wave inversions noted in V1 V2 V3, lead [address] elevations or changes previous EKGs is 2019 with out these inverted T-waves EKG 2. Persistent T-wave inversions noted in previous leads stated above no ST elevations or depressions EKG 3. Persistent T-waves no changes from prior MDM Narrative Medical decision making narrative: Patient is 62-year-old male with a history of pulmonary embolism, diabetes hypertension presents today with chest discomfort. He had some chest pain on the left side yesterday kind of a dull ache today he noticed a while right. He has not having any increasing shortness of breath need anything for it now. Blood work has been reviewed he does have an elevated MCV but no anemia, D-dimer elevated at 1099, no KIMBERLEY no electrolyte abnormalities 2- troponins Imaging reviewed chest x-ray no acute cardiopulmonary process CT suggest possible bronchial wall thickening Patient presents today with some mild chest discomfort but he has new persistent T-wave inversions without evidence of ST elevations. He is 2- troponins. He is multiple risk factors. He reports he previously had a cardiac workup is house as though he has a treadmill stress test he had an echocardiogram in 2019 which showed septal motion is consistent with conduction abnormality he had a normal EF and mild aortic regurg. I can not find record of previous stress test. At this time with new EKG changes acute chest pain reasonable to be brought in for chest pain observation Dr. Gonzalez updated patient's symptoms test results agrees with observation Discharge Plan Departure Patient Disposition: Admitted as Observation Clinical Impression: Chest pain Admit Date/Time: 03/16/23 21:43 Admit Provider: Geraldo Leslie
[2023-03-16 20:09] LABS: D Dimer 1099 ng/ml (<500)
--- NOTE | 2023-03-16 20:17 | DI.CT.S_ITS ---
PROCEDURE: CT ANGIO CHEST PE PROTOCOL INDICATIONS: high dimer, prior dimer TECHNIQUE: After the administration of intravenous contrast, 2 mm thick sections acquired from the pulmonary apices to the posterior costophrenic angles. 3-dimensional maximum intensity projection (MIP) coronal and sagittal reformats were then acquired through the thorax. For radiation dose reduction, the following was used: automated exposure control, adjustment of mA and/or kV according to patient size. COMPARISON: [facility], CT, CT ANGIO CHEST PE, 05/04/2018, 21:03. FINDINGS: Image quality: Diagnostic. Pulmonary arteries: Pulmonary arteries are normal in size, and demonstrate no intraluminal filling defects to suggest central pulmonary embolism. Lower Neck: No visible adenopathy. Thyroid: Normal CT appearance. Axillae: No enlarged lymph nodes. Chest Wall: Unremarkable. Bones: No suspicious bone lesions. Partially imaged anterior and posterior cervical spine hardware. Prominent endplate spurs. Lungs and Pleura: Central airways are patent. Peripheral airways demonstrate mild bronchial wall thickening in the perihilar regions bilaterally. Mild bibasilar ground-glass opacities. No dense consolidations, suspicious nodules, or pleural effusions. Heart: Heart size at the upper limits of normal. No pericardial effusion. Thoracic Vessels: No aortic aneurysm. Mediastinum and Promise: Mild mediastinal lipomatosis with shotty, nonenlarged lymph nodes present diffusely. Esophagus: No wall thickening. No hiatal hernia. Upper Abdomen: Mild hepatic steatosis. Visible upper abdominal organs are otherwise within normal limits. IMPRESSION: No acute pulmonary embolus. Bronchial wall thickening and minor bibasilar ground-glass opacities suggesting bronchitis. Dictated by: Sherrell Urbina M.D. on 03/16/2023 at 21:00 Approved by: Sherrell Urbina M.D. on 03/16/2023 at 21:11
--- NOTE | 2023-03-16 22:05 | DI.ECHO.S_ITS ---
[facility]---------+ [facility] +---------+ : : [address] : : : : [id number] : : : : Phone: [phone] Echocardiogram Report + + :Name: JASEN HERMOSILLO Study Date: 03/17/2023 Height: 77 in : :[facility] ReadingLocation: Weight: 250 lb : : Gender: Male BSA: 2.5 m2 : :: 1960 Age: 62 yrs BP: 136/82 mmHg: :Reason For Study: CHEST PAIN, R/O NE : :Ordering Physician: PLACIDO, : :LAURA Performed By: Mady Guerra : :Referring: LAURA CUMMINS : + + Interpretation Summary Left ventricular systolic function is mildly reduced. The ejection fraction is estimated to be 45-50%. LVEF has not changed since prior study. Left ventricular global longitudinal strain average is abnormal at 16.9% (normal being more negative than -20%). Bulll's eye pattern shows a possible nolan on top pattern that could suggest possible infiltrative cardiomyopathy such as amyloidosis. Consider blood work for amyloidosis and cardiac amyloidosis nuclear scan to rule if clinically suspicious for cardiac amyloidosis. Diastolic parameters suggest a relaxation abnormality of the left ventricle, consistent with probable normal filling pressures. The right ventricle is normal in size and function. The left atrial size is normal. There is no significant valvular heart disease. The aortic root is mildly dilated. The ascending aorta is mildly enlarged. Procedure: A two-dimensional transthoracic echocardiogram with color flow and Doppler was performed. The study quality was technically adequate. Comparison is made with the echocardiogram of 08/10/2019. The heart rate ranged between 68-80 bpm during the study. Left Ventricle: The left ventricle is normal in size. There is borderline concentric left ventricular hypertrophy. Left ventricular systolic function is mildly reduced. The ejection fraction is estimated to be 45-50%. Left ventricular global longitudinal strain average is abnormal at 16.9% (normal being more negative than -20%). Septal motion is consistent with conduction abnormality. Bulll's eye pattern shows a possible nolan on top pattern that could suggest possible infiltrative cardiomyopathy such as amyloidosis. Consider blood work for amyloidosis and cardiac amyloidosis nuclear scan to rule if clinically suspicious for cardiac amyloidosis. Diastolic parameters suggest a relaxation abnormality of the left ventricle, consistent with probable normal filling pressures. Right Ventricle: The right ventricle is normal in size and function. Atria: The left atrial size is normal. Right atrial size is normal. There is no Doppler evidence for an interatrial shunt. Mitral Valve: The mitral valve is normal in structure and function. There is no mitral regurgitation noted. Aortic Valve: The aortic valve is trileaflet. The aortic valve opens well. There is no aortic valve stenosis. There is trace aortic regurgitation. Tricuspid Valve: The tricuspid valve is normal in structure and function. There is trace tricuspid regurgitation. Pulmonic Valve: The pulmonic valve is not well visualized. There is no pulmonic valvular regurgitation. There is no significant valvular heart disease. Great Vessels: The aortic root is mildly dilated. The ascending aorta is mildly enlarged. The IVC is dilated (diameter is greater than 2.1 cm) yet it collapses greater than 50% with a sniff. This suggests a right atrial pressure of 8 mm Hg. Pericardium/ Pleura There is no pericardial effusion. There is no pleural effusion. MMode/2D Measurements & Calculations LVIDd: 4.6 cm LVOT diam: 2.1 cm LVIDs: 3.6 cm Ao root diam: 4.3 cm FS: 22.0 % asc Aorta Diam: 3.9 cm EPSS: 0.98 cm Ao Arch Diam (Prox Trans): 3.1 cm IVSd: 1.1 cm LVPWd: 1.0 cm LV landon. diameter/BSA (cm/m^2): 1.9 LV sys. diameter/BSA (cm/m^2): 1.5 LA A2 area: 18.8 cm2 RA long axis: 5.2 cm LA A4 area: 14.0 cm2 RA area: 16.1 cm2 LA length (vol): 5.6 cm RA vol: 42.1 ml LA vol: 39.8 ml RA : 17.1 ml/m2 LA vol index: 16.2 ml/m2 IVC diam: 2.2 cm RVD1 (basal): 3.8 cm TAPSE: 2.1 cm Doppler Measurements & Calculations Ao V2 max: 127.8 cm/sec LVOT Max Jordan: 84.9 cm/sec Ao V2 mean: 98.7 cm/sec LV V1 max P.9 mmHg Ao max P.5 mmHg LV V1 VTI: 14.9 cm Ao mean P.1 mmHg FLO(I,D): 2.1 cm2 Ao V2 VTI: 24.2 cm FLO(V,D): 2.3 cm2 sev ratio: 0.61 FLO indexed to BSA (cm^2/m^2): 0.86 MV E max jordan: 32.4 cm/sec PA V2 max: 103.9 cm/sec MV A max jordan: 73.7 cm/sec PA V2 mean: 74.7 cm/sec MV E/A: 0.44 PA mean P.4 mmHg Med Peak E' Jordan: 7.0 cm/sec PA pr(Accel): 45.6 mmHg E/E' med: 4.7 Lat Peak E' Jordan: 8.2 cm/sec E/E' lat: 3.9 E/e' average: 4.3 MV dec time: 0.25 sec SV(LVOT): 51.1 ml Reading Physician:02:37 PM
[2023-03-17] VITALS (7 sets, daily range): BP systolic 118–161; BP diastolic 82–96; PULSE 63–76; RESP 16–18; TEMP 36–36.6; O2SAT 95–97
--- NOTE | 2023-03-17 00:33 | PC.ADMIT ---
[facility] Admission Note: The patient,Jamal Guerrero,62 y/o, was given written information regarding hospital policies, unit procedures and contact persons. Patient's smoking status: Never smoker. Vital Signs - 8 hr 03/16/23 17:00 03/16/23 17:00 03/16/23 17:30 Temperature Pulse Rate 61 Respiratory Rate 13 Blood Pressure 133/85 129/81 Pulse Oximetry 97 Oxygen Delivery Method Oxygen Flow Rate 03/16/23 17:30 03/16/23 17:45 03/16/23 18:00 Temperature Pulse Rate 67 61 63 Respiratory Rate 17 14 15 Blood Pressure Pulse Oximetry 97 97 98 Oxygen Delivery Method Oxygen Flow Rate 03/16/23 18:00 03/16/23 18:15 03/16/23 18:30 Temperature Pulse Rate 62 Respiratory Rate 12 Blood Pressure 135/91 H 135/90 Pulse Oximetry 97 Oxygen Delivery Method Oxygen Flow Rate 03/16/23 18:30 03/16/23 18:45 03/16/23 19:00 Temperature Pulse Rate 59 L 60 Respiratory Rate 12 14 Blood Pressure 132/89 Pulse Oximetry 98 98 Oxygen Delivery Method Oxygen Flow Rate 03/16/23 19:00 03/16/23 19:15 03/16/23 19:30 Temperature Pulse Rate 61 59 L 62 Respiratory Rate 13 14 18 Blood Pressure Pulse Oximetry 98 97 98 Oxygen Delivery Method Room Air Room Air Oxygen Flow Rate 03/16/23 19:31 03/16/23 19:31 03/16/23 19:45 Temperature Pulse Rate 61 61 Respiratory Rate 14 16 Blood Pressure 160/97 H Pulse Oximetry 98 98 Oxygen Delivery Method Room Air Room Air Oxygen Flow Rate 03/16/23 20:00 03/16/23 20:00 03/16/23 20:15 Temperature Pulse Rate 59 L 60 Respiratory Rate 12 10 L Blood Pressure 154/93 H Pulse Oximetry 97 96 Oxygen Delivery Method Room Air Oxygen Flow Rate 03/16/23 20:30 03/16/23 20:45 03/16/23 21:00 Temperature Pulse Rate 63 60 Respiratory Rate 14 16 Blood Pressure 164/99 H Pulse Oximetry 98 96 Oxygen Delivery Method Oxygen Flow Rate 03/16/23 21:15 03/16/23 21:30 03/16/23 21:45 Temperature Pulse Rate 71 67 65 Respiratory Rate 12 12 13 Blood Pressure Pulse Oximetry 95 94 94 Oxygen Delivery Method Room Air Room Air Oxygen Flow Rate 03/16/23 22:00 03/16/23 22:15 03/16/23 22:15 Temperature Pulse Rate 65 62 Respiratory Rate 14 15 Blood Pressure 161/91 H Pulse Oximetry 95 97 Oxygen Delivery Method Room Air Oxygen Flow Rate 03/16/23 23:25 03/17/23 00:28 Temperature 97.7 F Pulse Rate 73 Respiratory Rate 16 Blood Pressure 152/97 H Pulse Oximetry 97 Oxygen Delivery Method Room Air Oxygen Flow Rate 0 Patient admitted to room 212 at 2230 per wheelchair from ER. He is alert and oriented. Breath sounds CTA with RA sat of 97%. HRR w/telemetry reading of SR w/BBB. BP elevated at 154/70. 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 Does state he has some dull chest discomfort which he rates as 1/10 and declines intervention. He denies nausea. BT present and abdomen is soft. Denies any dysuria, frequency, urgency or hesitancy with urination. He is independent with bed mobility and gets up to bathroom independently. Fall risk score is moderate but alarm is not indicated at this time. Oriented to call light and bed controls. Reviewed MD orders with him.
[2023-03-17 06:38] LABS: Add Manual Diff / Slide Review NO; Basophils Absolute Auto 100 /uL (0-100); Basophils Percent Auto 0.9 % (0-2); Eosinophils Absolute Auto 400 /uL (0-450); Eosinophils Percent Auto 6.1 % (2-4); Hematocrit 46.9 % (41-53); Hemoglobin 16.2 g/dL (13.5-17.5); Lymphocytes Absolute Auto 1400 /uL (1100-4500); Lymphocytes Percent Auto 24.7 % (25-40); Mean Corpuscular HGB Conc 34.6 % (30-36); Mean Corpuscular Hemoglobin 38.9 PG (26-34); Mean Corpuscular Volume 112.3 fL (80-100); Monocytes Absolute Auto 600 /uL (0-900); Monocytes Percent Auto 10.1 % (3-14); Neutrophils Absolute Auto 3400 /uL (1500-7000); Neutrophils Percent Auto 58.2 % (50-75); Platelet Count 255 X10^3/uL (150-400); Red Blood Cell Count 4.18 X10^6/uL (4.5-5.9); Red Cell Distribution Width 14.1 % (11.6-14.8); White Blood Cell Count 5.9 X10^3/uL (4.5-11.0)
[2023-03-17 06:50] LABS: Alanine Aminotransferase 34 IU/L (<50); Albumin 3.8 g/dL (3.5-5.0); Albumin Globulin Ratio 1.6 (1.0-2.8); Alkaline Phosphatase 51 U/L (38-126); Aspartate Aminotransferase 36 IU/L (17-59); BUN Creatinine Ratio 19.8 (6-22); Bilirubin Total 1.2 mg/dL (0.2-1.3); Blood Urea Nitrogen 19 mg/dL (9-20); Calcium 9.1 mg/dL (8.4-10.2); Carbon Dioxide 27 mmol/L (22-32); Chloride 101 mmol/L (98-107); Creatine Kinase 52 U/L (55-170); Estimated Glomerular Filt Rate > 60 mL/min (>60); Globulin 2.4 g/dL (1.7-4.1); Glucose 130 mg/dL (80-110); HEMOLYSIS 28 (0-50); Sodium 134 mmol/L (137-145); Total Protein 6.2 g/dL (6.3-8.2)
[2023-03-17 06:52] LABS: Macrocytosis 2+
[2023-03-17 06:59] LABS: Troponin I < 0.012 ng/mL (0.01-0.034)
[2023-03-17] MEDS: SODIUM CHLORIDE 0.9% FLUSH 10 ML IV ×2 (08:52→20:56)
[2023-03-17] MEDS: ENOXAPARIN 40 MG/0.4 ML SYRINGE SUBCUT (08:52)
--- NOTE | 2023-03-17 08:59 | PM.HP.1 ---
History of Present Illness History of Present Illness Date Patient Seen: 03/17/23 Time Patient Seen: 08:59 Chief complaint: chest discomfort Narrative: Patient presented to ED with persistent chest pressure. Hx of PE found to have elevated D Dimer ~10k otherwise feeling ok. Does note longstanding history of unexplained presyncopal events that cardiology has not found an explanation for but this is a distinct issue. Low grade chest pain not associated with exertion he does have a hx of LBBB. Troponins were negative he was admitted for echo and monitoring. No other pain, notes chest pain is low grade on L side and does not seem to increase with exertion. [facility] Medical History (Updated 03/16/23 @ 23:51 by Janet Cardenas DO) Pre-diabetes Hypertension Social History household members: significant other Smoking Status: Never smoker Meds Home Medications and Allergies Home Medications Medication Instructions Recorded Confirmed Type metformin 500 mg tablet 500 mg PO DAILY 05/24/18 03/16/23 History aspirin 81 mg tablet 81 mg PO DAILY 07/19/20 03/16/23 History metoprolol succinate 25 mg 50 mg PO BID 07/19/20 03/16/23 History tablet,extended release 24 hr vitamin B12 1 mg-folic acid 0.8 mg 1 tab PO DAILY 07/19/20 03/16/23 History tablet valsartan 160 mg tablet 160 mg PO DAILY 03/16/23 03/16/23 History Allergies Allergy/AdvReac Type Severity Reaction Status Date / Time No Known Drug Allergies Allergy Verified 07/19/20 14:58 Review of Systems Review of Systems Narrative: all systems reviewed and negative except as otherwise documented in HPI Exam Vital Signs (past 8 hours): - 03/17/23 03:25 Temperature 97.7 F Pulse Rate 66 Respiratory Rate 16 Blood Pressure 136/82 Pulse Oximetry 97 Oxygen Flow Rate 0 Oxygen Delivery Method Room Air Oxygen Flow Rate 0 Narrative Exam Narrative: alert resting comfortably HENMT Other: normocephalic atraumatic Resp Other: clear to auscultation bilaterally Cardio Other: regular rate and rhythm, S1/S2, well perfused no pedal edema no reproducible pain on chest pressure GI Other: soft nontender active bowel sounds Neuro General: patient alert, patient awake, patient oriented x3, gait normal and moves all extremities Objective Labs 03/17/23 05:30 03/17/23 05:30 Labs: Laboratory Results - last 24 hr 03/16/23 03/16/23 03/16/23 14:20 16:21 19:34 WBC 8.2 RBC 4.29 L Hgb 17.0 Hct 48.4 MCV 112.7 H MCH 39.5 H MCHC 35.1 RDW 14.1 Plt Count 301 Neut % (Auto) 63.2 Lymph % (Auto) 22.9 L [place] % (Auto) 9.7 Eos % (Auto) 3.3 Baso % (Auto) 0.9 Neut # (Auto) 5200 Lymph # (Auto) 1900 [place] # (Auto) 800 Eos # (Auto) 300 Baso # (Auto) 100 RBC Morphology Not Reportable Macrocytosis 2+ H PT 12.3 INR 1.1 APTT 34 D-Dimer 1099 H Sodium 135 L Potassium 4.2 Chloride 100 Carbon Dioxide 29 BUN 19 Creatinine 1.08 Estimated GFR > 60 BUN/Creatinine Ratio 17.6 Glucose 117 H Calcium 9.2 Magnesium 1.8 Total Bilirubin 1.3 AST 44 ALT 39 Alkaline Phosphatase 56 Total Creatine Kinase 77 Troponin I < 0.012 < 0.012 Total Protein 7.1 Albumin 4.2 Globulin 2.9 Albumin/Globulin Ratio 1.4 Lipase 122 03/17/23 05:30 WBC 5.9 RBC 4.18 L Hgb 16.2 Hct 46.9 MCV 112.3 H MCH 38.9 H MCHC 34.6 RDW 14.1 Plt Count 255 Neut % (Auto) 58.2 Lymph % (Auto) 24.7 L [place] % (Auto) 10.1 Eos % (Auto) 6.1 H Baso % (Auto) 0.9 Neut # (Auto) 3400 Lymph # (Auto) 1400 [place] # (Auto) 600 Eos # (Auto) 400 Baso # (Auto) 100 RBC Morphology Not Reportable Macrocytosis 2+ H PT INR APTT D-Dimer Sodium 134 L Potassium 4.0 Chloride 101 Carbon Dioxide 27 BUN 19 Creatinine 0.96 Estimated GFR > 60 BUN/Creatinine Ratio 19.8 Glucose 130 H Calcium 9.1 Magnesium Total Bilirubin 1.2 AST 36 ALT 34 Alkaline Phosphatase 51 Total Creatine Kinase 52 L Troponin I < 0.012 Total Protein 6.2 L Albumin 3.8 Globulin 2.4 Albumin/Globulin Ratio 1.6 Lipase Assessment & Plan Assessment & Plan narrative: #chest pain #hx of LBBB #Hx of PE troponins wnl in ED with high D Dimer normal CTA chest strip does show some LBBB which is not new reviewed EKG with cardiology appreciate Dr. 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
[2023-03-17] MEDS: METOPROLOL ER 25 MG TABLET 50 MG PO ×2 (09:20→20:56)
[2023-03-17] MEDS: ASPIRIN EC 81 MG TABLET PO (09:20)
[2023-03-17] MEDS: METFORMIN HCL 500 MG TABLET PO (09:20)
[2023-03-17] MEDS: VALSARTAN 80 MG TABLET 160 MG PO (09:20)
--- NOTE | 2023-03-17 14:27 | CM.DANOTE ---
Initial DCP Assessment Note Pt is a 62 yo male, presents with complaints of chest pain, admitted for w/u Echo scheduled today with potential for discharge after results are available. PCP: Geraldo Leslie Payer: Giuliana Mary Reviewed chart, patient discussed with RN and provider. Patient indp in all aspects, expected to discharge home w/SO and recommendation for close outpatient follow up. No barriers identified at this time to patient's safe discharge home w/family to assist; close outpatient f/u recommended. CM team will plan to follow closely in case any DC needs or concerns arise. STEPHEN Maurer Discharge Planning/Care Management CM Discharge Assessment Start: 03/17/23 14:22 Freq: Status: Active Protocol: Document 03/17/23 14:22 KATHARINE (Rec: 03/17/23 14:26 KATHARINE [id number]) Discharge Planning Assessment Assigned Commissary Worker STEPHEN Mittal DPOA/Assigned Designee Name Meir Carrillo, daughter( Hernandez) Contact Information [phone] Advance Directives? No History Provided By Patient,Medical Record Prior Living Arrangements Other Household Members significant other Type of transporation used prior to Drives own vehicle admit Independent with ADL's Yes Is patient alert and oriented? Yes Barriers to Discharge No Comment Home w/SO expected once imaging complete Discharge Plan Home Transportation Arrangement SO Referrals Initiated None needed
--- NOTE | 2023-03-17 23:36 | PC.NURSE ---
Patient is alert and oriented. Breath sounds CTA with RA sat of 96%. HRR w/telemetry reading of SR w/BBB. BP is elevated at 161/96; medicated with scheduled Metoprolol. Still having some chest discomfort although he states it isn't pain but can't really verbalize what pain feels like maybe a pressure and bilateral chest. Denies nausea. BT present and abdomen is soft. Voiding without dysuria. Independent with mobility. Is aware he will be NPO after 0000 except for water in anticipation of nuclear stress test in the morning. Fall risk score is moderate but bed alarm determined not to be needed at this time.
[2023-03-18] VITALS: BP 102/65; PULSE 69; RESP 17; TEMP 36.4; O2SAT 95
[2023-03-18 04:00] VITALS: BP 113/67; PULSE 66; RESP 16; TEMP 36.4; O2SAT 96
[2023-03-18 08:00] VITALS: BP 112/76; PULSE 66; RESP 16; TEMP 35.8; O2SAT 96
[2023-03-18 08:31] VITALS: BP 112/76
[2023-03-18] MEDS: SODIUM CHLORIDE 0.9% FLUSH 10 ML IV (08:31)
[2023-03-18] MEDS: ENOXAPARIN 40 MG/0.4 ML SYRINGE SUBCUT (08:31)
[2023-03-18] MEDS: METOPROLOL ER 25 MG TABLET 50 MG PO (08:31)
[2023-03-18] MEDS: METFORMIN HCL 500 MG TABLET PO (08:31)
[2023-03-18] MEDS: ASPIRIN EC 81 MG TABLET PO (08:31)
[2023-03-18] MEDS: VALSARTAN 80 MG TABLET 160 MG PO (08:31)
--- NOTE | 2023-03-18 09:21 | PC.NURSE ---
Pt to Nuclear Medicine via w/c for images.
[2023-03-18 12:00] VITALS: BP 111/82; PULSE 70; RESP 16; TEMP 36.1; O2SAT 95
--- NOTE | 2023-03-18 13:58 | P.DS_ITS ---
History of Present Illness History of Present Illness Date Patient Seen: 03/18/23 Time Patient Seen: 13:58 Chief complaint: chest discomfort Narrative: Able to get stress test today per conversation with Dr. Walker seems to be low risk - pt reports symptoms have completely receded this afternoon he can really only sense anything in his chest if he really really concentrates. Will plan on discharging home to f/up with PCP and cardiology. Discharge Providers Provider Date of admission: 03/16/23 21:43 Discharge Date: 03/18/23 Primary care physician: Geraldo Leslie MD Consults: 03/17/23 17:28 Consult to Cardiology Routine Comment: Consulting Provider: Juju Beckham Reason for consultation: chest pain and LBBB Has provider been notified: Yes Discharge provider: Geraldo Leslie MD Summary Hospital Course Discharge Diagnosis: #chest pain #hx of LBBB #Hx of PE #hx of presyncope #non insulin controlled DM2 #hypertension, essential Hospital Course: Patient presented to ED with persistent chest pressure. Hx of PE takes only baby aspirin, found to have elevated D Dimer ~10k otherwise felt ok. Did note longstanding history of unexplained presyncopal events for which cardiology has not found an explanation but this is a distinct issue. Low grade chest pain/pressure not associated with exertion he does have a hx of LBBB. Troponins were negative he was admitted for echo and monitoring. No other pain, noted chest pain was low grade on L side and did not seem to increase with exertion. Echo and then pharmacologic stress tests proved to be low risk with good evident function. Chest sensation subsided. Plan will be to f/up presyncopal episodes as outpatient. Status at Discharge Cognitive/behavioral status at discharge: at baseline, oriented Functional status at discharge: independent ambulation Overall status at discharge: patient is back to baseline Exam Vital Signs (past 8 hours): - 03/18/23 08:00 03/18/23 08:31 03/18/23 12:00 Temperature 96.4 F L 97 F L Pulse Rate 66 70 Respiratory Rate 16 16 Blood Pressure 112/76 112/76 111/82 Pulse Oximetry 96 95 Oxygen Flow Rate 0 0 Oxygen Delivery Method Room Air Oxygen Flow Rate 0 Narrative Exam Narrative: alert sitting in bed Resp Other: clear to auscultation bilaterally Cardio Other: regular rate and rhtythm, S1/S2 GI Other: soft nontender nondistended Neuro Other: AAOx3, cn 2-12 grossly intact Extrem Other: no pedal edema moving all extremities Objective Labs 03/17/23 05:30 03/17/23 05:30 [facility] Medical History (Updated 03/16/23 @ 23:51 by Janet Cardenas DO) Pre-diabetes Hypertension Social History household members: significant other Smoking Status: Never smoker Discharge Assessment & Plan Assessment and Plan Assessment: #chest pain #hx of LBBB #Hx of PE #hx of presyncope troponins wnl in ED with high D Dimer normal CTA chest with some LBBB on EKG which is not new echo generally reassuring except for 'nolan on top' finding Stress test obtained today low risk per cardiology Will plan on outpatient followup with PCP and cardiology - he would like to pursue second opinion for his presyncope spells which have been an issue for years - perhaps Dr. Salazar who is now aware of his case. 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 spent: 40 minutes, in patient contact, specialist contact, documentation, reviewing charts, formulating a plan and monitoring progress throughout the day Discharge Plan Discharge Plan Patient Disposition: Home Discharge orders & Medications Prescriptions: Continued metformin 500 mg Tablet 500 mg PO DAILY valsartan 160 mg tablet 160 mg PO DAILY aspirin 81 mg Tablet 81 mg PO DAILY metoprolol succinate 25 mg tablet extended release 24 hr 50 mg PO BID vitamin G27-wbrng acid 1-0.8 mg Tablet 1 tab PO DAILY Follow up/Referrals: Veronica Archer MD [Primary Care Provider] - Juju Beckham DO [Physician] - 2 Weeks (for recurrent presyncope, also recent chest pain admission on which Dr. Salazar consulted) Geraldo Leslie MD [Physician] - Diet/Activity/Treatments Diet: Low-sodium Visit Report/Discharge Packet Instructions: Myocardial Perfusion Imaging, DI for Cardiac Stress Test, DI for Chest Pain, Chemical Stress Test Stand Alone Forms: Patient Portal/API, Stroke Signs & Symptoms Discharge Data Primary Care Provider: Veronica Archer Attending Provider: Geraldo Leslie Date/Time: 03/16/23 21:43
--- NOTE | 2023-03-18 14:07 | PC.NURSE ---
Pt is dressed and ready for discharge home. He has his own vehicle here and states he feels safe to drive himself home. IV has been removed. Went over d/c instructions with Pt-discussed d/c meds, time of last dose, reviewed stroke education, discussed being watchful for chest pain and coming back to the ER or to his PCP if that occurs. Pt to establish with a Robotics Mechanic and follow up with his PCP as needed. Pt denied further questions and was taken out via w/c by PROCEDURE RN to POV with all belongings.
--- NOTE | 2023-03-18 21:38 | DI.NM.S_ITS ---
DATE OF SERVICE: 03/18/2023 PROCEDURE: Perfusion study. INDICATIONS: Chest pain with left bundle branch block, prediabetic, hypertension. RADIOPHARMACEUTICAL: 27.5 mCi technetium-99m Myoview IV was injected at stress and 9.7 mCi technetium-99m Myoview IV was injected at rest. CARDIAC STRESS: Patient underwent IV Lexiscan perfusion study under the supervision of an attending staff as per standard protocol. Patient remained hemodynamically stable. Baseline blood pressure 120/70. Baseline rhythm sinus with left bundle branch block. During stress, no new convincing ischemic changes. No significant arrhythmias. No chest pain. The patient has minimal dyspnea. RAW DATA: Patient's weight is 250 pounds. Increased subdiaphragmatic activity. Diaphragmatic shadow seen as well. GATED STUDY: Stress LV ejection fraction reported to be 49%; however on my visual inspection, overall LV function appears to be preserved. I do not see any significant wall motion abnormalities. Stress end-diastolic volume 120 mL. Lung/heart ratio 0.47, which is abnormal. TID ratio 0.89, which is within normal limits. MYOCARDIAL PERFUSION SCAN: Stress supine, resting supine and stress prone images were compared to each other. Stress supine and resting supine images revealed large size, moderate to severely decreased perfusion of inferior wall extending into the inferior apex, base to mid inferolateral wall as well as inferior septum which significantly improved during stress prone images, suggestive of tissue attenuation artifact. No convincing ischemia or infarction pattern during stress prone images. CONCLUSION: I would will call this study likely a normal myocardial perfusion study with evidence of significant tissue attenuation artifact/diaphragmatic tissue attenuation artifact, which significantly resolved during stress prone images. Patient's weight is 250 pounds. Underlying rhythm sinus with left bundle branch block. Visually LV function appears to be preserved. TID ratio within normal limits. Lung/heart ratio 0.47, which is mildly abnormal. Consider 2D echo to assess LV function as well as rule out diastolic dysfunction or valvular pathology. As far as perfusion scan is concerned, this is a low-risk myocardial perfusion scan. Jamal Guerrero - ARTIST RELATIONSHIP MANAGER/estrella/ec doc#: [id number]/job#: [id number] dd: 03/18/2023 12:52:00 dt: 03/18/2023 21:18:00 DICTATING MD/COPIES TO: Shan Walker MD; Geraldo Leslie M.D. COPIES MNE: [place];
== END 2023-03-18 14:12 | disposition home or self-care (01) ==
LOC: ED 18:00 → AC 21:44
PROVIDERS: Emergency Medicine; Family Medicine; Admitting Provider Family Medicine; Emergency Provider Emergency Medicine; PCP Student in an Organized Health Care Education/Training Program; Referring Provider Emergency Medicine; Visit Provider Family Medicine
DX: R07.9 Chest pain, unspecified (principal); Z86.711 Personal history of pulmonary embolism; I10 Essential (primary) hypertension; E11.9 Type 2 diabetes mellitus without complications; Z79.84 Long term (current) use of oral hypoglycemic drugs
CPT/HCPCS: 36415; 71045; 71275; 78452; 80053; 82550; 83690; 83735; 84484; 85025; 85379; 85610; 85730; 93005; 93010; 93017; 93306; 96372; 99284; G0378; A9502; J1650; J2785; Q9967